=== PATIENT | female | born 1970 | race Caucasian/White ===

== ENCOUNTER 2018-09-07 21:49 | Emergency (ER) | payer BC ==
[2018-09-07 22:13] VITALS: O2SAT 99
[2018-09-07] MEDS ORDERED: BUPIVACAINE 0.5% 30 ML VIAL INJ ONE (22:13)
--- NOTE | 2018-09-07 22:27 | ED.PDOC ---
History of Present Illness - General Chief Complaint: Skin/Abrasion/Tear Stated Complaint: burning and stinging in finger Time Seen by Provider: 09/07/18 21:53 Source: patient Exam Limitations: no limitations - History of Present Illness Initial Comments: SHE WAS OPENING A WOODEN GATE AND CAUGHT THE LOWER END OF THE GATE WITH THE RIGHT HAND. SOMETHING STUNG THE DISTAL TIP OF THE RIGHT INDEX. IT STARTED BLEEDING AND SINCE THEN SHE SUSTAINS A BURNING SENSATION TO THE DISTAL TIP. SHE SAW NO INSECT OR SPIDER IN THE AREA AND HER HAS LOOKED AT THE BOTTOM OF THE GATE AND THERE SEEMS TO BE NO FOREIGN BODY OR SPLINTERS. SHE HAS BEEN APPLYING ICE AND THAT SEEMS TO MASCARADE THE PAIN. Timing/Duration: 1-3 hours Severity: severe Improving Factors: cold therapy Associated Symptoms: denies symptoms Home Medications: Ambulatory Orders Acetamin W/Cod #3 Tab [Tylenol w/CODEINE #3] 1 ea PO Q4HR #15 tab 09/07/18 Review of Systems - Review of Systems Constitutional: States: no symptoms reported EENTM: States: no symptoms reported Respiratory: States: no symptoms reported Cardiology: States: no symptoms reported Gastrointestinal/Abdominal: States: no symptoms reported Genitourinary: States: no symptoms reported Musculoskeletal: States: no symptoms reported Skin: States: no symptoms reported, other - PAINFUL RIGHT DISTAL INDEX FINGER. Neurological: States: no symptoms reported Endocrine: States: no symptoms reported Hematologic/Lymphatic: States: no symptoms reported Past Medical History (General) - Patient Medical History Hx Seizures: No Hx Stroke: No Hx Dementia: No Hx Asthma: No Hx of COPD: No Hx Cardiac Disorders: No Hx Congestive Heart Failure: No Hx Pacemaker: No Hx Hypertension: No Hx Thyroid Disease: No Hx Diabetes: No Hx Gastroesophageal Reflux: No Hx Renal Disease: No Hx of HIV: No Hx MRSA: No Surgical History: Hysterectomy - Vaccination History Hx Tetanus, Diphtheria Vaccination: No Hx Influenza Vaccination: No Hx Pneumococcal Vaccination: No Immunizations Up to Date: No - Social History Hx Tobacco Use: No Hx Alcohol Use: No Hx Substance Use: No Hx Substance Use Treatment: No Hx Depression: No Family Medical History - Family History Father Hx Family Diabetes: Yes Mother Hx Family Cancer: Yes - ovarian Physical Exam - Physical Exam General Appearance: Alert, Obvious distress, Well Developed, Well Groomed, Well Hydrated, Well Nourished Eye Exam: bilateral normal Ears, Nose, Throat: hearing grossly normal Neck: non-tender, full range of motion Respiratory: chest non-tender, lungs clear Cardiovascular/Chest: normal peripheral pulses, regular rate, rhythm, no edema, no gallop Peripheral Pulses: radial,right: 2+, radial,left: 2+ Gastrointestinal/Abdominal: normal bowel sounds, non tender, soft, no organomegaly, no pulsatile mass Skin Exam: other - SMALL ABRASION TO THE DISTAL RIGHT INDEX, VOLAR ASPECT Progress - Progress Progress: 09/07/18 23:20 X-RAY IS NEGATIVE FOR FB OR FRACTURE. Departure - Departure Clinical Impression: Puncture wound of finger of right hand Qualifiers: Encounter type: initial encounter Qualified Code(s): S61.239A - Puncture wound without foreign body of unspecified finger without damage to nail, initial encounter Time of Disposition: 23:22 Disposition: Discharge to Home or Self Care Condition: Fair Departure Forms: ED Discharge - Pt. Copy, Patient Portal Self Enrollment Instructions: DI for Abrasion Prescriptions: Acetamin W/Cod #3 Tab [Tylenol w/CODEINE #3] 1 ea PO Q4HR #15 tab Home Medications: Ambulatory Orders Acetamin W/Cod #3 Tab [Tylenol w/CODEINE #3] 1 ea PO Q4HR #15 tab 09/07/18 Additional Instructions: RETURN IF CONDITION WORSENS
--- NOTE | 2018-09-07 22:46 | RAD ---
EXAM DESCRIPTION: Fingers,Right 3 views of the right second digit CLINICAL HISTORY: 48 years, Female, PAINFUL AND INJURY TO RIGHT INDEX FINGER COMPARISON: None. FINDINGS: There is no acute fracture or dislocation. The bony alignment is normal. There is no focal soft tissue swelling. The metacarpal, and phalangeal bones are normal in appearance. The metacarpophalangeal, and interphalangeal joints are normal in appearance. IMPRESSION: No acute fracture or dislocation. Electronically signed by: Beltran Ring MD 09/07/2018 10:43 PM CDT
[2018-09-07] MEDS ORDERED: TETANUS,DIPHTHERIA,PERTUSSIS 1 EA SYG IM ONE (23:25)
[2018-09-07] MEDS ORDERED: ACETAMINOPHEN W/COD #3 TAB (ER Disp) PO ONE (23:25)
[2018-09-07 23:38] VITALS: BP 129/83
[2018-09-07 23:39] VITALS: TEMP 97.8
== END 2018-09-07 23:47 | disposition home or self-care (01) ==
LOC: ER 21:49
DX: S61.230A Puncture wound without foreign body of right index finger without damage to nail, initial encounter (principal); X58.XXXA Exposure to other specified factors, initial encounter; Z23 Encounter for immunization; Y92.9 Unspecified place or not applicable